=== PATIENT | male | born 1955 | race Caucasian/White ===

== ENCOUNTER 2020-07-09 14:45 | Outpatient (CLI) | payer MEDICARE, BC, SELFPAY ==
[2020-07-09 15:10] LABS: Abs Immature Grans 0.03 10^3/uL (0.0-0.06); Absolute Basophil Count 0.07 10^3/uL (0.0-0.2); Absolute Eosinophil Count 0.23 10^3/uL (0.0-0.7); Absolute Lymphocyte Count 2.19 10^3/uL (1.2-3.4); Absolute Monocyte Count 0.93 10^3/uL (0.1-0.8); Absolute Neutrophil Count 5.13 10^3/uL (1.2-6.7); Basophils % 0.8; Eosinophils % 2.7; HCT 46.5 % (40.0-50.0); HGB 14.1 g/dL (13.5-17.5); Immature Grans % 0.3; Lymphocytes % 25.5; MCH 23.3 pg (27.0-33.0); MCHC 30.3 % (32.0-36.0); MCV 76.7 fL (80-95); MPV 9.1 fL (8.0-11.0); Monocytes % 10.8; Neutrophils % 59.9; Nucleated RBC 0 %; Platelet Count 233 10^3/uL (130-400); RBC 6.06 10^6/uL (4.36-5.78); RDW 15.3 % (11.8-14.1); RDW-SD 41.5 fL; WBC 8.58 10^3/uL (4.4-10.8)
[2020-07-09 15:28] LABS: ALT 48 U/L (16-63); AST 38 U/L (15-37); Alkaline Phosphatase 105 U/L (46-116); Anion Gap 10.1 mmol/L (3-11); BUN 37 mg/dL (7-18); Bilirubin, Total 0.6 mg/dL (0.2-1.0); CO2 28.9 mmol/L (21.0-32.0); CREATININE 2.2 mg/dL (0.70-1.30); Calcium 9.1 mg/dL (8.5-10.1); Chloride 103 mmol/L (98-107); Glucose 105 mg/dL (74-106); Potassium 3.6 mmol/L (3.5-5.1); Sodium 142 mmol/L (136-145); Total Protein 8.4 g/dL (6.4-8.2)
[2020-07-11 12:06] LABS: PSA, Ultrasensitive 17.3 ng/mL (<= 4.5)
[2020-07-13 10:09] LABS: Testosterone, Total 549 ng/dL (240-950)
== END 2020-07-09 14:46 | disposition home or self-care (01) ==
PROVIDERS: Visit Provider Internal Medicine
DX: C61 Malignant neoplasm of prostate (principal)
CPT/HCPCS: 36415; 80053; 84153; 84403; 85025

== ENCOUNTER 2021-03-11 17:19 | Outpatient (CLI) | payer MEDICARE, BC, SELFPAY ==
[2021-03-11 13:00] LABS: Abs Immature Grans 0.02 10^3/uL (0.0-0.06); Absolute Basophil Count 0.03 10^3/uL (0.0-0.2); Absolute Eosinophil Count 0.17 10^3/uL (0.0-0.7); Absolute Neutrophil Count 4.51 10^3/uL (1.2-6.7); Basophils % 0.4; Eosinophils % 2.5; HCT 42.4 % (40.0-50.0); HGB 13.1 g/dL (13.5-17.5); Immature Grans % 0.3; Lymphocytes % 20.2; MCH 23.5 pg (27.0-33.0); MCHC 30.9 % (32.0-36.0); MCV 76.1 fL (80-95); MPV 9.3 fL (8.0-11.0); Monocytes % 11.5; Neutrophils % 65.1; Nucleated RBC 0 %; Platelet Count 184 10^3/uL (130-400); RBC 5.57 10^6/uL (4.36-5.78); RDW 14.9 % (11.8-14.1); RDW-SD 40.3 fL; WBC 6.93 10^3/uL (4.4-10.8)
[2021-03-11 13:14] LABS: ALT 23 U/L (16-63); AST 22 U/L (15-37); Albumin 3.7 g/dL (3.4-5.0); Alkaline Phosphatase 90 U/L (46-116); Anion Gap 3.4 mmol/L (3-11); BUN 33 mg/dL (7-18); Bilirubin, Total 0.4 mg/dL (0.2-1.0); CO2 33.6 mmol/L (21.0-32.0); CREATININE 1.7 mg/dL (0.70-1.30); Calcium 9.1 mg/dL (8.5-10.1); Chloride 105 mmol/L (98-107); Estimated GFR 40.53 (mL/min/1.73m2); Glucose 109 mg/dL (74-106); Potassium 4.2 mmol/L (3.5-5.1); Sodium 142 mmol/L (136-145); Total Protein 7.7 g/dL (6.4-8.2)
[2021-03-12 10:16] LABS: PSA, Ultrasensitive 0.19 ng/mL (<= 4.5)
[2021-03-15 11:02] LABS: Testosterone, Total <7.0 ng/dL (240-950)
== END 2021-03-11 17:20 | disposition home or self-care (01) ==
LOC: LBO 17:21
PROVIDERS: Visit Provider Internal Medicine
DX: C61 Malignant neoplasm of prostate (principal)
CPT/HCPCS: 36415; 80053; 84153; 84403; 85025